=== PATIENT | female | born 2000 | race Caucasian/White ===

== ENCOUNTER 2023-09-14 16:30 | Outpatient (AMB) | payer BC, SELFPAY ==
--- NOTE | 2023-09-14 16:30 | A.OFFPSYCH_ITS ---
Intake Intake Visit Reasons: Depression, DEIDRA (generalized anxiety disorder), panic attacks Allergies olanzapine Allergy (Intermediate, Verified 09/16/23 11:08) Rash lorazepam Adverse Reaction (Mild, Verified 09/16/23 11:08) Agitated Medication List - Last Reconciled 09/16/23 by Nicole Jhaveri APRN amitriptyline 50 mg (2 x 25 mg) PO BEDTIME bupropion HCl XL (Wellbutrin XL) 150 mg PO QAM fluoxetine (Prozac) 10 mg PO DAILY folic acid 1 mg PO DAILY lamotrigine (Lamictal) 150 mg (1.5 x 100 mg) PO BID HPI- Psychiatric Chief Complaint: Depression, DEIDRA (generalized anxiety disorder), panic attacks HPI Narrative: Pt is traveling for graduate school and spent a semester in [place] and then in [facility]. i last saw pt in Apr 2023 in my pp. She has been doing well. some increased stress in [facility] when her roomate was having parties late at night frequently but she was able to cope well despite high stress. She will be in the [facility] for a few daty and then drive back to [place] to spend time with family before going to [facility] [employer] [employer] [facility] and [employer] for her next 2 semesters. she is doing well academically; she is taking meds consistently and no side effects; she had stopped her BCP and noticed the pMDD has returned; she has 7 days of irritability prior to the start of her period; she has 2 days when she feels really good and more scial; no high risk behaviors; no impulsivity; once her menses starts she feel her mood is more normal; we discussed options fro PMDD. she has been on prozac in past with good effect so she will take prozac 10mg to start if that is ineffective she can increase lamictal, add B50 complex vitamin as weel and if none of these work she will reach out to [facility] again. No SI no HI no paranoia. anxiety but manageable depression low. Past Psychiatric History: In 2018 when pt was a freshman at [employer] [place] [facility] [place], Pt and parents met with this race and sports book writer- they report that 2 years dx with depression, DEIDRA, and past June 2018 dx with Schizoaffective Depressive type because she told her psychiatrist that she had paranoid ideas with ritualized behaviors since age 11. She would feel someone was watching her while getting undressed or changing her clothes and would inspector rag sorting a certain place in her room; she took an antipsychotic for a while but didn't like it so stopped and the paranoid ideas went away as well; She is on Prozac and Wellbutrin and feels she is doing very well. Pt did not have the relational style nor social withdrawal that is characteristic of schizoaffective disorder; she had long standing anxiety with OCD traits and depression with paranoia. Pt has friends and makes social connection. She has been treated for depression and DEIDRA with panic and has done well; No IPLOC. no PHP IOP. no self harm. graduated [employer] and is now in gradua te school studying [employer]. Panic attacks: Yes Agoraphobia: No Separation anxiety disorder: No Social phobia: No Specific phobia: No Hypochondriasis: No Body dysmorphic disorder: No Obsessive compulsive disorder: No Generalized anxiety: Yes Post traumatic stress disorder: No Acute stress disorder: No Previous psychiatric history: Yes Previous inpatient psychiatric hospitalization: No Other previous psychiatric treatment programs: none History of suicidal ideation: No History of suicide attempt: No Medically hospitalized: No History of self injurious behavior: No History of violence: No Current/previous psychiatrist: [email or web address] Current/previous therapist: none Subjective Subjective Subjective Medication Compliance: Yes Side effects from medications: No Review of Systems Medical Review of Systems: unchanged Mental Status Exam Mental Status Exam Patient Appearance: Well Grooomed and Appropriate Patient Orientation: Person, Place, Time and Situation Level of Consciousness: Awake and Alert Patient Behavior: Appropriate Mood Description: Happy and Anxious Affect Description: Happy and Anxious Patient Cognition Impaired: No Ability to Follow Directions: Excellent Speech Pattern: Clear and Appropriate Memory Description: Intact Hallucinations: None Delusions: Not Present Thought Process: Intact and Goal Oriented Thought Content: positive for Intact and positive for Goal Oriented Judgement: Good Assessment and Plan Assessment & Plan (1) Generalized anxiety disorder: Code(s): F41.1 - Generalized anxiety disorder (2) Major depressive disorder, recurrent, mild: Status: Acute Code(s): F33.0 - Major depressive disorder, recurrent, mild Plan continue lamictal, amitriptyline, wellbutrin, folic acid and clonazepam; trial of prozac 10 mg daily x 10 days before period Medications: New amitriptyline 50 mg (2 x 25 mg) PO BEDTIME 180 tabs 0RF bupropion HCl XL (Wellbutrin XL) 150 mg PO QAM 90 tabs 1RF lamotrigine (Lamictal) 150 mg (1.5 x 100 mg) PO BID 270 tabs 1RF folic acid 1 mg PO DAILY 90 tabs 1RF fluoxetine (Prozac) 10 mg PO DAILY 90 caps 0RF Counseling and coordination of Care Pt. Self Management counseling: Exercise, Light exposure, Maintenance-social rhythm, Mod caffeine/ETOH intake, Sleep hygiene, Behavior activation and Problem solving Medication management counseling: Effectiveness, Side effects, Dosing range, Duration, Drug interaction and Adherence Diagnosis and Prognosis Counseling: Accuracy of diagnosis, Prognosis over time, Impact of diagnosis on life functions, Impact of family relationship, Problematic behaviors secondary to diagnosis and Adequacy of current interventions Details: I spent [45] minutes reviewing the record, seeing the patient and documenting in the medical record. Counseling provided to the patient/caregiver as outlined below. Addressed patient/caregiver concerns regarding current medication regime including effective adherence. Addressed patient/caregiver concerns regarding diagnosis and prognosis including accuracy of diagnosis, prognosis over time, impact of diagnosis. Addressed patient/caregiver concerns regarding impact of recent stressors. [facility] Social History: in grad school for [employer]; grew up with mom and dad in [place]; ppt is the youngest 4 ; all her sibs are 1/2 sibs and much older. Pt graduated from [employer] [facility] [place] [facility] [place] in 2022 Substance History: none Trauma History: none known Coding Level of Care Code Est Pt Level 4 (72355) Tele Therapy 30m w/E&M (57162) Diagnoses Generalized anxiety disorder F41.1 Major depressive disorder, recurrent, mild F33.0
== END 2023-09-14 17:48 | disposition home or self-care (01) ==
LOC: HO.HOP 16:30
PROVIDERS: Visit Provider Clinical Nurse Specialist Psychiatric/Mental Health
DX: F41.1 Generalized anxiety disorder (principal); F33.0 Major depressive disorder, recurrent, mild
CPT/HCPCS: 90833; 99214

== ENCOUNTER → 2023-09-14 16:30 | Outpatient (BNVA) | payer BC, SELFPAY | PROVIDERS: Visit Provider Clinical Nurse Specialist Psychiatric/Mental Health ==

== ENCOUNTER 2024-05-22 10:22 | Outpatient (AMB) | payer BC, SELFPAY ==
--- NOTE | 2024-05-22 11:06 | MHC.OFFVISPS ---
Intake Intake Visit Reasons: depression Project Archivist Required: No Allergies olanzapine Allergy (Intermediate, Verified 09/16/23 11:08) Rash lorazepam Adverse Reaction (Mild, Verified 09/16/23 11:08) Agitated Medication List - Last Reconciled 05/22/24 by Nicole Jhaveri APRN amitriptyline 50 mg (2 x 25 mg) PO BEDTIME bupropion HCl XL (Wellbutrin XL) 150 mg PO QAM cholecalciferol (vitamin D3) (Vitamin D3) 25 mcg PO DAILY drospirenone-ethinyl estradiol 3-0.02 mg (Vestura (28)) tabs PO DAILY folic acid 1 mg PO DAILY lamotrigine (Lamictal) 150 mg (1.5 x 100 mg) PO BID tretinoin 0.05% appl topical HPI- Psychiatric Chief Complaint: depression HPI Narrative: pt reports worsening mood over past 6 months; In summer pt had a 2 week period of high irritability and poor sleep that remitted on its own. In [facility] pt had depression and then a period of not sleeping which increased in intensity from 4 hour at night only, then 3 hours a night for weeks ntil her sleep deteriotated to 15 min one night. She reports slef care was difficult at that time and she stopped taking her meds for a period due to outof routine, not eating well and feeling irritable, elated, and hypersexual. She denies high risk behaviors or impulsive behaviors. She did have increased productivity and fantasized and researched moving to [facility]. She went home in [facility] and talked with her mother; she restarted her meds a month ago and slowly tapered up on the lamictal and now is back on her medications fully; Her mood is stable and she is sleeping 8 hours. No psychosis nd no SI or HI. We discussed dx of Bipolar II disorder and patient has acceptance and insight. Pts maternal grandfatherand maternal uncle both dx qwith Bipolar do. Discussed self care and prevention of cycling. Past Psychiatric History: In 2018 when pt was a freshman at [employer] [facility] [place] Pt and parents met with this curriculum writer- they report that 2 years dx with depression, DEIDRA, and past June 2018 dx with Schizoaffective Depressive type because she told her psychiatrist that she had paranoid ideas with ritualized behaviors since age 11. She would feel someone was watching her while getting undressed or changing her clothes and would building repair maintenance supervisor a certain place in her room; she took an antipsychotic for a while but didn't like it so stopped and the paranoid ideas went away as well; She is on Prozac and Wellbutrin and feels she is doing very well. Pt did not have the relational style nor social withdrawal that is characteristic of schizoaffective disorder; she had long standing anxiety with OCD traits and depression with paranoia. Pt has friends and makes social connection. She has been treated for depression and DEIDRA with panic and has done well; No IPLOC. no PHP IOP. no self harm. graduated [employer] and is now in graduate school studying [email or web address]. Subjective Subjective Subjective Medication Compliance: Intermittent Side effects from medications: No Review of Systems Medical Review of Systems: unchanged Mental Status Exam Mental Status Exam Patient Appearance: Well Grooomed and Appropriate Patient Orientation: Person, Place, Time and Situation Level of Consciousness: Awake and Appropriate Patient Behavior: Appropriate, Cooperative and Good Eye Contact Mood Description: Anxious Affect Description: Anxious Patient Cognition Impaired: No Ability to Follow Directions: Good Speech Pattern: Clear and Appropriate Memory Description: Intact Hallucinations: None Delusions: Not Present Thought Process: Intact Thought Content: positive for Intact Judgement: Good Assessment and Plan Assessment & Plan (1) Bipolar II disorder with most proximal episode hypomanic with seasonal pattern: Status: Acute Code(s): F31.81 - Bipolar II disorder Plan continue medications as below discussed using risperdal PRN for racing thought, sleeplessness, irritability hypomania to prevent cycling Medications: New risperidone (Risperdal) 0.5 mg PO BID 180 tabs 1RF Refilled lamotrigine (Lamictal) 150 mg (1.5 x 100 mg) PO BID 270 tabs 1RF amitriptyline 50 mg (2 x 25 mg) PO BEDTIME 180 tabs 1RF folic acid 1 mg PO DAILY 90 tabs 1RF bupropion HCl XL (Wellbutrin XL) 150 mg PO QAM 90 tabs 1RF Counseling and coordination of Care Pt. Self Management counseling: Maintenance-social rhythm, Mindfulness, Mod caffeine/ETOH intake, Nutrition education and improvement, Sleep hygiene and General coping skills Medication management counseling: Effectiveness, Side effects, Dosing range, Duration, Drug interaction and Adherence Diagnosis and Prognosis Counseling: Accuracy of diagnosis, Prognosis over time, Impact of diagnosis on life functions, Impact of family relationship, Problematic behaviors secondary to diagnosis and Adequacy of current interventions Details-Diagnosis/Prognosis counseling: discussed new diagnosis, prognosis, course, self care and prevention strategies Details: I spent 50 minutes reviewing the record, seeing the patient and documenting in the medical record. Counseling provided to the patient/caregiver as outlined below. Addressed patient/caregiver concerns regarding current medication regime including effective adherence. Addressed patient/caregiver concerns regarding diagnosis and prognosis including accuracy of diagnosis, prognosis over time, impact of diagnosis. Addressed patient/caregiver concerns regarding impact of recent stressors. [facility] Medical History (Updated 05/22/24 @ 17:11 by Nicole Jhaveri APRN) Major depressive disorder, recurrent, mild Social History: in grad school for [email or web address]; grew up with mom and dad in [place]; ppt is the youngest 4 ; all her sibs are 1/2 sibs and much older. Pt graduated from [employer] [place] [place] in 2022 Substance History: none Trauma History: none known Coding Level of Care Code Est Pt Level 5 (13525) Diagnoses Bipolar II disorder with most proximal episode hypomanic with seasonal pattern F31.81 Time Spent (min) 45 Comment new dx
--- OUTSIDE RECORDS SUMMARY | 2024-05-22 11:08 | XMS_ITS | Encounter Summary ---
Author Organization [facility] Address [address] [place] [address] Care Team Providers Care Manager Document Control Name Role Phone Moraima eZng DO Primary Care Provider [phone] Moraima Zeng DO Unavailable [phone] Moraima Zeng DO Unavailable [phone] Shashi Shannon M DO Unavailable [phone] KarriMoraima arnold DO Unavailable [phone] Kalli Marie DO Unavailable KarriMoraima arnold DO Unavailable [phone] Cammy Jiang MD Unavailable [phone] Moraima Zeng DO Unavailable [phone] Moraima Zeng DO Unavailable [phone] Moraima Zeng DO Unavailable [phone] Moraima Zeng DO Unavailable [phone] Nicole Caballero APN Unavailable [phone] Nicole Caballero APN Unavailable [phone] Moraima Zeng DO Unavailable [phone] Moraima Zeng DO Unavailable [phone] Moraima Zeng DO Unavailable [phone] Reason for Referral * Specialty Diagnoses / Procedures Referred By Nadya t Referred To Contact [facility] [address] [facility] [address] [place] [address] Phone: tel: Referral ID Status Reason Start Date Expiration Date Visits Re quested Visits Authorized Encounter Details Date Type Department Care Team (Late st Contact Info) Description 10/25/2018 Outpatient Orders Only [facility] Primary Care - [place] [facility] - [id number] [place] [address] ProviderJessie MD [address] [place] [address] Social History Tobacco Use Types Packs/Day Years Used Date Smoking Tobacco: Never Smokeless Tobacco: Never Alcohol Use Standard Drinks/Week Comments Never 0 (1 standard drink = 0.6 oz pur e alcohol) AUDIT-C Answer Date Recorded Frequency of Alcohol Consumption Never 10/11/2018 Average Number of Drinks Not on file 019 Frequency of Binge Drinking Not on file 09/18 Comments Unknown Sex and Gender Information Value Date Recorded Sex Assigned at Not on file Legal Sex Female 18:55 EDT Gender Identity Female 10/11/2018 9:23 EDT Sexual Orientation Unknown/Unavailable 3 8:43 EDT documented as of this encounter Plan of Treatment Not on file documented as of this encounter Goals Goal Patient Goal Type Associated Problems Recent Progress Patient-Stated? Author Barriers to Care Amb General No Moraima Zeng DO Note: Assessed and addressed any barriers to effectively following prescribed medical plan. Patient Understanding Amb General Yes Moraima Zeng DO Note: Patient understanding: Voiced understanding Shared Decision Making Amb General No Moraima Zeng DO Note: Shared decision making based on patient preferences discussed with:Patient Individual patient goals/preferences Amb General No Moraima Zeng DO Diet/Nutrition Obesity No Moraima Zeng DO Note: Discussed weight loss goal of 5-10% of current weight over the next 6 months Construct a healthy diet plan ie. Low-calorie high-nutrition foods, lean proteins, and low-fat alternatives. Activity Obesity No Moraima Zeng DO Note: Reviewed diet and activity plan with patient. Discussed with patient incorporate at moderate-intensity aerobic activity and two or more days of resistance training per week. Reduce sedentary behaviors such as TV watching computer use and talking on the phone. documented as of this encounter Procedures Procedure Name Priority Date/Time Associated Diagnosis Comments AMB REFERRAL TO GASTROENTEROLOGY Routine 10/24/2018 documented in this encounter Results * AMB REFERRAL TO GASTROENTEROLOGY (10/24/2018) us Historical Provider OUTPATIENT REFERRAL ORDER DANIELLE Edited Result - Final documented in this encounter Visit Diagnoses Not on filedocumented in this encounter Care Teams Manager Document Control Relationship Specialty Start Date End Date Moraima Zeng DO [address] [place] [phone] PCP - General Internal Medicine - General 10/11/18 Moraima Zeng DO [address] [place] [phone] ACO/LANEY Attributed Provider 04/19/19 10/17/19 Moraima Zeng DO [address] [place] [address] ACO/LANEY Attributed Provider 10/18/19 11/17/19 Shannon Danielle DO [facility] [place], [place] [id number] Instrument Repairer Steam Plant Obstetrics & Gynecology 11/22/19 Moraima Zeng, DO [address] [place] [address]2374 LOSS CONTROL TECHNICIAN+ Provider 12/19/19 01/17/20 Kalli Marie DO [address] [place] [address] [phone] LOSS CONTROL TECHNICIAN+ Provider 01/18/20 04/18/21 Moraima Zeng, DO [address] [place] [address] [phone] LOSS CONTROL TECHNICIAN+ Provider 04/19/21 04/19/21 Cammy Jiang MD [address] [place] [address] [phone] Dermatology 09/28/22 Moraima Zeng, DO [address] [place] [address] [facility] Panel 12/18/22 10/17/23 Moraima Zeng, DO [address] [place] [address] 31495 ACO/LANEY Attributed Provider 02/17/23 04/18/23 Moraima Zeng DO [address] [place] [address] 44703 ACO/LANEY Attributed Provider 05/20/23 06/17/23 Moraima Zeng, DO [address] [place] [address] 50207 ACO/LANEY Attributed Provider 07/19/23 09/17/23 Nicole Caballero APN [address] [place] [address] 29186 ACO/LANEY Attributed Provider 09/18/23 11/17/23 Nicole Caballero APN [address] [place] [address] [facility] Panel 09/18/23 11/17/23 Moraima Zeng DO [address] [place] [address] [facility] Panel 10/18/23 Moraima Zeng DO [address] [place] [address] 0000[address] ACO/LANEY Attributed Provider 10/18/23 02/17/24 Moraima Zeng DO [address] [place] [address] 06803 ACO/LANEY Attributed Provider 02/18/24 documented as of this encounter
--- OUTSIDE RECORDS SUMMARY | 2024-05-22 11:09 | XMS_ITS | Encounter Summary ---
Author Organization [facility] Address [address] [place] [address] Care Team Providers Care Customer Service Advisor Name Role Phone Moraima Zeng DO Primary Care Provider [phone] Shannon Danielle DO Unavailable Cammy Jiang MD Unavailable [phone] Moraima Zeng DO Unavailable Moraima Zeng DO Unavailable Moraima Zeng DO Unavailable Moraima Zeng DO Unavailable Nicole CaballeroN Unavailable Nicole Caballero RADIO OPERATOR GROUND Unavailable [phone] Moraima Zeng DO Unavailable Moraima Zeng DO Unavailable Moraima Zeng DO Unavailable Encounter Details Date Type Department Care Team (Late st Contact Info) Description 12/10/2022 Telephone [facility] - Primary Care - [place] [address] [place] [address] Moraima Zeng DO [facility] [address] Social History Tobacco Use Types Packs/Day Years Used Date Smoking Tobacco: Never Smokeless Tobacco: Never Alcohol Use Standard Drinks/Week Comments Never 0 (1 standard drink = 0.6 oz pur e alcohol) AUDIT-C Answer Date Recorded Frequency of Alcohol Consumption Never 11/22/2019 Average Number of Drinks Not on file 020 Frequency of Binge Drinking Not on file 08/2019 PHQ-2 Answer Date Recorded Patient Health Questionnaire-9 Score 0 12/10/2022 PHQ-9 Answer Date Recorded Patient Health Questionnaire-9 Score 0 12/10/2022 Comments No Sex and Gender Information Value Date Recorded Sex Assigned at Not on file Legal Sex Female 18:55 EDT Gender Identity Female 10/11/2018 9:23 EDT Sexual Orientation Unknown/Unavailable 8:43 EDT COVID-19 Exposure Response Date Recorded In the last 10 days, have yo u been in contact with someone who was confirmed or suspected to have Coronavirus/COVID-19? No / Unsure 12/10/2022 13:45 EDT documented as of this encounter Miscellaneous Notes * Telephone Encounter - Clarissa Garnett CMA - 12/10/2022 1014 EDT Made an appt with Zaira to discuss bw. * Telephone Encounter - Michael Gustafson - 12/10/2022 0859 EDT Pt called, Got recent bw results from [facility]. Is due to go on vacation in next few days and was wondering if we could advise if she requires any boosters etc. Based on bw results. Advised her dr is away at the moment but would send a message to clinical team to check if anyone could advise. Can we call pt back please? JTP documented in this encounter Plan of Treatment Not on [...] the phone. documented as of this encounter Visit Diagnoses Not on filedocumented in this encounter Care Teams Customer Service Advisor Relationship Specialty Start Date End Date Moraima Zeng DO [address] [place] [address] PCP - General Internal Medicine - General 10/11/18 Shannon Danielle DO [facility] [address] [place] [address] Rn Hyperbaric Obstetrics & Gynecology 11/22/19 Cammy iJang MD [address] [place] [address] Dermatology 09/28/22 Moraima Zeng DO [address] [place] [address] [facility] Panel 12/18/22 10/17/23 Moraima Zeng, DO [address] [place] [address] ACO/LANEY Attributed Provider 02/17/23 04/18/23 Moraima Zeng, DO [address] [place] [address] ACO/LANEY Attributed Provider 05/20/23 06/17/23 Moraima Zeng, DO [address] [place] [address] ACO/LANEY Attributed Provider 07/19/23 09/17/23 Nicole Caballero APN [address] [place] [address] ACO/LANEY Attributed Provider 09/18/23 11/17/23 Nicole Caballero APN [address] [place] [address] [facility] Panel 09/18/23 11/17/23 Moraima Zeng, DO [address] [place] [address] [facility] Panel 10/18/23 Moraima Zeng, DO [address] [place] [address] ACO/LANEY Attributed Provider 10/18/23 02/17/24 Moraima Zeng DO [facility] [place] [address] ACO/LANEY Attributed Provider 02/18/24 documented as of this encounter
--- OUTSIDE RECORDS SUMMARY | 2024-05-22 11:11 | XMS_ITS | Clinical Summary ---
Author Organization [facility] Address [address] [place] [address] Care Team Providers Care Personal Loan Specialist Name Role Phone Moraima Zeng DO Primary Care Provider [phone] Shannon Danielle DO Unavailable [phone] Cammy Vega MD Unavailable [phone] Moraima Zeng DO Unavailable [phone] Moraima Zeng DO Unavailable [phone] Allergies Active Allergy Reactions Criticality Noted Date Comments Olanzapine 05/06/2020 Rash Brexpiprazole Drowsiness Low 04/09/2021 Extreme fatigue Topiramate 10/11/2018 Heavy fog Medications Magnesium 125 MG CAPS by mouth Active Multiple Vitamins-Calcium (ONE-A-DAY WOMENS PO) by mouth Active amitriptyline (ELAVIL) 25 MG tablet Take 25 mg nightly by mouth 03/22/20 21 Active Cholecalciferol (VITAMIN D) 25 MCG (1000 UT) tablet 12/26/19 21 Active lamoTRIgine (LAMICTAL) 100 MG tablet Take 100 mg every morning by mouth 02/24/20 21 Active clonazePAM (KLONOPIN) 1 MG tablet as needed Active lamoTRIgine (LAMICTAL ODT) 50 MG disintegrating tablet Take 50 mg nightly by mouth Active buPROPion (WELLBUTRIN XL) 150 MG 24 hr tablet Take 150 mg every morning by mouth 08/05/19 Active folic acid (FOLVITE) 1 MG tablet Take 1 Tablet daily by mouth 09/04/19 Active tretinoin (RETIN-A) 0.05 % cream 12/09/19 Active drospirenone-ethin yl estradiol (MELLISSA) 3-0.02 MG per tabletIndications: Contraceptive Management Take 1 Tablet daily by mouth Indications: Contraceptive Management 60 Tablet 04/10/20 24 Active Active Problems Problem Noted Date Diagnosed Date Encounter for gynecological examination without abnormal finding 04/10/2024 Assessment & Plan (04/10/2024 13:36 EST): Normal APPLICATOR SPRAYER exam PAP test Not indicated at this time. Accepts STI testing. Labs done w/ PCP. Educated about SBEs. Follow up 1 year. Encounter for initial prescription of contracept rory pills 04/10/2024 Assessment & Plan (04/10/2024 13:39 EST): Pt would like to start control pills for acne. Pt taking lamictal for bipolar. Reviewed cat 3 when lamictal used as monotherapy as cocs may decrease concentration. Pt reports she has been on ocps prior and would like to restart. Advised to consult with psychiatrist. Reports she has appt in 1 month. OCPs ordered. Aches reviewed. Advised that if any change in mood/SI/ thoughts of self harm, consult with psych and discontinue ocps. Pt accepts this plan. Hepatitis B core antibody positive 12/10/2022 Assessment & Plan (12/10/2022 15:23 EDT): Labs showed positive core antibody but surface antigen and surface antibody immune. Script given for viral load labs. If viral load present will refer to Hepatology, Dr. Lopez or Brisa Annual visit for general janice lt medical examination with abnormal findings 12/02/2022 Overview (12/02/2022): Annual Wellness Exam: 12/02/2022 Screening labs: Recommend yearly screening labs ordered 12/02/2022 Screening Mammo: due by age 40 yo Screening Pap: UTD w/ screening pap 12/19/2021 - normal repeat yearly. Screening DEXA: due by age 65 yo Screening Colonoscopy: due by age 45 yo Screening SKIN Cancer: recommend yearly screening - UTD dr vega Eye Exam: UTD w/ yearly - [facility] Dental Exam: UTD w/ cleaning Flu Vaccine: recommend yearly recommend fall 2022 Pneumonia Vaccine: recommend by age 65 yo Shingles Vaccine: recommend by age 50 yo Tdap Vaccine: good for 10 years. UTD tdap 06/21/2020 Varicella Vaccine: 04/21/2002 and 12/06/2012 Covid vaccine: pfizer 05/08/2020 and 05/29/2020 and 04/03/2021 and bivalent pfizer booster 04/13/2022. Hep B vaccine: 12/20/2001, 01/25/2001, 2000 Assessment & Plan (12/02/2022 18:02 EDT): Annual Wellness Exam: 12/02/2022 Screening labs: Recommend yearly screening labs ordered 12/02/2022 Screening Mammo: due by age 40 yo Screening Pap: UTD w/ screening pap 12/19/2021 - normal repeat yearly. Screening DEXA: due by age 65 yo Screening Colonoscopy: due by age 45 yo Screening SKIN Cancer: recommend yearly screening - UTD dr vega Eye Exam: UTD w/ [facility] - [facility] Dental Exam: UTD w/ cleaning Flu Vaccine: recommend yearly recommend fall 2022 Pneumonia Vaccine: recommend by age 65 yo Shingles Vaccine: recommend by age 50 yo Tdap Vaccine: good for 10 years. UTD tdap 06/21/2020 Varicella Vaccine: 04/21/2002 and 12/06/2012 Covid vaccine: pfizer 05/08/2020 and 05/29/2020 and 04/03/2021 and bivalent pfizer booster 04/13/2022. Hep B vaccine: 12/20/2001, 01/25/2001, 2000 Acute UTI 12/02/2022 Assessment & Plan (12/02/2022 13:49 EDT): Symptoms x 3 days UA/URx and urine dipstick in office Microscopic hematuria 12/02/2022 Assessment & Plan (12/02/2022 14:07 EDT): Recommend repeat UA/URcx Hydrate Renal /bladder US ordered 12/02/2022 Recommend decrease or stop the spironolactone - coordinate w/ derm. Risks for renal stones w/ the calcium oxylate crystals. Need for hepatitis B screening test 12/02/2022 Screen for STD (sexually transmitted disease) Need for hepatitis C screening test 12/02/2022 Intermittent palpitations 12/02/2022 Assessment & Plan (12/02/2022 18:03 EDT): POCT EKG Result Date: 12/02/2022 Impression: EKG shows NSR at [address] no T wave changes, otherwise stable baseline EKG. Benign joint hypermobility syndrome 09/12/2021 Assessment & Plan (09/12/2021 13:20 EDT): As above Sinus tachycardia 04/09/2021 Assessment & Plan (12/02/2022 18:03 EDT): Sinus tachycardia w/ anxiety ?? Worse on the higher dose wellbutrin, improving on the lower dose ?? EKG in office stable 04/09/2021 ?? POCT EKG ?? Result Date: 04/09/2021 Impression: EKG shows NSR at 87 BPM no sT no T wave changes, + mild artifact, otherwise stable baseline EKG POCT EKG Result Date: 12/02/2022 Impression: EKG shows NSR at [address] no T wave changes, otherwise stable baseline EKG. Assessment & Plan (04/09/2021 8:39 EST): Sinus tachycardia w/ anxiety Worse on the higher dose wellbutrin, improving on the lower dose EKG in office stable 04/09/2021 POCT EKG Result Date: 04/09/2021 Impression: EKG shows NSR at 87 BPM no sT no T wave changes, + mild artifact, otherwise stable baseline EKG Recurrent major depressive d isorder, in full remission ([facility]) 04/09/2021 Assessment & Plan (12/02/2022 14:10 EDT): Major depression recurrent Hx moderate, up to date with therapist and psychiatrist - now in remission on medications ?? Off the prozac Off the latuda Off the rexulti, was having paranoia since middle school. Not having paranoia now. Was on antipsychotics for months and had extreme fatigue and stomach pains, weaned off and doing well. Hydroxyzine 25 mg prn - stopped ?? Medications: elvail 25 mg nightly Klonopin 0.5 mg - 1 mg daily as needed wellbutrin xl 150 mg daily lamictal 100 mg in the AM and 50 mg nightly ?? All psych medications through psychiatrist Jeet Jones in [facility] PHQ-9 = 0 on 12/02/2022, stable, depression in remission and anxiety stable Assessment & Plan (09/28/2022 14:25 EDT): Hx of depression UTD w/ therapist and psychiatrist Doing well on medications Depression is in remission and stable, discussed during visit on 09/28/2022 Assessment & Plan (04/09/2021 8:53 EST): Major depression recurrent Hx moderate, up to date with therapist and psychiatrist - now in remission on medications Off the prozac Off the latuda Off the rexulti, was having paranoia since middle school. Not having paranoia now. Was on antipsychotics for months and had extreme fatigue and stomach pains, weaned off and doing well. Medications: elvail 25 mg nightly Klonopin 0.5 mg - 1 mg daily as needed wellbutrin xl 150 mg daily Hydroxyzine 25 mg prn lamictal 100 mg in the AM and 50 mg nightly All psych medications through psychiatrangela Jones in [facility] Polyarthralgia 05/06/2020 Assessment & Plan (12/02/2022 13:53 EDT): Secondary to joints hypermobility syndrome. No signs of inflammatory polyarthritis. Labs November 2019: negative for RF, CCP, CLAUDIA, King, PRECISION FARMING COORDINATOR, dsDNA, SSA, Scl 70, Lyme western blot. Normal CPK, TSH.??Negative celiac panel. Repeatedly normal ESR and CRP. S/p work up w/ rheumatology at [facility]. Assessment & Plan (09/12/2021 13:19 EDT): Secondary to joints hypermobility syndrome. No signs of inflammatory polyarthritis. Labs November 2019: negative for RF, CCP, CLAUDIA, King, PRECISION FARMING COORDINATOR, dsDNA, SSA, Scl 70, Lyme western blot. Normal CPK, TSH. Negative celiac panel. Repeatedly normal ESR and CRP. Recommend: - Tylenol 500 mg BID PRN - avoid activities that includes joints hyperextension (like modern dance) - do muscle strengthening exercises ?? Assessment & Plan (04/09/2021 8:40 EST): Full autoimmune panel 12/05/2019 negative Joint pain improved w/ the anxiety medications Stable as of 04/09/2021 Assessment & Plan (07/01/2020 15:26 EDT): Intermittent pain in joints of hands, feet, ankles, dull in elbows and knees. Since November 2019. No swollen joints. Normal ROM joints of arms and legs. Widespread articular and non articular body tenderness. No effect of NSAIDs. Laboratory work up for inflammatory arthritis in November 2019 was negative for RF, CCP, CLAUDIA, King, PRECISION FARMING COORDINATOR, dsDNA, SSA, Scl 70, Lyme western blot. Normal CPK, TSH. Negative celiac panel. Repeatedly normal ESR and CRP. Likely non specific polyarthralgia. Will continue to reevaluate ?? Recommend: - Tylenol 500 mg BID PRN - daily exercises - continue acupuncture - monitor ESR and CRP Assessment & Plan (05/06/2020 15:53 EST): Intermittent sharp pain in joints of hands, feet, ankles, dull in elbows and knees. Since November 2019. Today's joints exam is normal, except mild tenderness in right 2nd and 3rd PIPs, left 2nd PIP, and MTPs squeeze. Laboratory work up for inflammatory arthritis in November 2019 was negative for RF, CCP, CLAUDIA, King, PRECISION FARMING COORDINATOR, dsDNA, SSA, Scl 70, Lyme western blot. Normal ESR, CRP, CPK, TSH. Likely non specific polyarthralgia. Will continue to reevaluate Recommend: - Meloxicam 15 mg once a day with meal for 2 weeks, then PRN - labs: ESR and CRP, celiac panel, recheck Lyme WB Depression 10/11/2018 Assessment & Plan (12/02/2022 14:10 EDT): Major depression recurrent Hx moderate, up to date with therapist and psychiatrist - now in remission on medications ?? Off the prozac Off the latuda Off the rexulti, was having paranoia since middle school. Not having paranoia now. Was on antipsychotics for months and had extreme fatigue and stomach pains, weaned off and doing well. Hydroxyzine 25 mg prn - stopped ?? Medications: elvail 25 mg nightly Klonopin 0.5 mg - 1 mg daily as needed wellbutrin xl 150 mg daily lamictal 100 mg in the AM and 50 mg nightly ?? All psych medications through psychiatrist Jeet Jones in [facility] PHQ-9 = 0 on 12/02/2022, stable, depression in remission and anxiety stable Assessment & Plan (04/09/2021 8:54 EST): Major depression recurrent Hx moderate, up to date with therapist and psychiatrist - now in remission on medications Off the prozac Off the latuda Off the rexulti, was having paranoia since middle school. Not having paranoia now. Was on antipsychotics for months and had extreme fatigue and stomach pains, weaned off and doing well. Medications: elvail 25 mg nightly Klonopin 0.5 mg - 1 mg daily as needed wellbutrin xl 150 mg daily Hydroxyzine 25 mg prn lamictal 100 mg in the AM and 50 mg nightly All psych medications through psychiatrangela Jones in [facility] Assessment & Plan (06/07/2020 16:30 EST): Pt on Wellbutrin 300mg 24hr po daily Prozac 20mg po daily Amitryptiline 10mg daily Klonopin .5mg po BID prn Lamictal 75mg po daily (25mg in am and 50mg in pm) Close follow up with therapy and psych Recommend exercise, meditation, acupuncture contact office or on-call physician promptly should condition worsen or any new symptoms appear and provided on-call telephone numbers. IF THE PATIENT HAS ANY SUICIDAL OR HOMICIDAL IDEATION, CALL 911 OR GO TO THE ER IMMEDIATELY. Assessment & Plan (12/21/2019 11:39 EDT): Pt on Wellbutrin 300mg 24hr tab Prozan 20mg po tab Amitryptiline 10mg tab [place] referral made for patient to find local providers PHQ 9: 3 Assessment & Plan (11/22/2019 14:24 EDT): Major depression recurrent and moderate, up to date with therapist and psychiatrist Doing well on the prozac 60 mg daily and the wellbutrin xl 300 mg daily, Off the latuda Off the rexulti, was having paranoia since middle school. Not having paranoia now. Was on antipsychotics for months and had extreme fatigue and stomach pains, weaned off and doing well. elvail 10mg - 30 mg nightly Klonopin 0.5 mg prn All psych medications through psychiatrist Assessment & Plan (10/11/2018 9:39 EDT): Major depression recurrent and moderate, up to date with therapist and psychiatrist Doing well on the prozac 60 mg daily and the wellbutrin xl 300 mg daily, Off the latuda Off the rexulti, was having paranoia since middle school. Not having paranoia now. Was on antipsychotics for months and had extreme fatigue and stomach pains, weaned off and doing well. Anxiety 10/11/2018 Assessment & Plan (12/02/2022 14:10 EDT): Major depression recurrent Hx moderate, up to date with therapist and psychiatrist - now in remission on medications ?? Off the prozac Off the latuda Off the rexulti, was having paranoia since middle school. Not having paranoia now. Was on antipsychotics for months and had extreme fatigue and stomach pains, weaned off and doing well. Hydroxyzine 25 mg prn - stopped ?? Medications: elvail 25 mg nightly Klonopin 0.5 mg - 1 mg daily as needed wellbutrin xl 150 mg daily lamictal 100 mg in the AM and 50 mg nightly ?? All psych medications through psychiatrist - Nannette Jones in [facility] PHQ-9 = 0 on 12/02/2022, stable, depression in remission and anxiety stable Assessment & Plan (04/09/2021 8:54 EST): Major depression recurrent Hx moderate, up to date with therapist and psychiatrist - now in remission on medications Off the prozac Off the latuda Off the rexulti, was having paranoia since middle school. Not having paranoia now. Was on antipsychotics for months and had extreme fatigue and stomach pains, weaned off and doing well. Medications: elvail 25 mg nightly Klonopin 0.5 mg - 1 mg daily as needed wellbutrin xl 150 mg daily Hydroxyzine 25 mg prn lamictal 100 mg in the AM and 50 mg nightly All psych medications through psychiatrist - Nannette Jones in [facility] Assessment & Plan (11/22/2019 14:25 EDT): Hx of anxiety and depression w/ episode of psychosis in 2012, UTD with psychiatrist and therapist Doing well on medications No episodes of psychosis since 2012 Hx of ?schizoaffective however 2nd opinion felt was major depression w/ episode of psychosis and no further symptoms. Medications: Elavil 10mg tabs taking 1-3 tabs nightly wellbutrin xl 300 mg daily Klonopin 0.5 mg prn prozac 60 mg daily Discussed medical marijuana program w/ pt. Assessment & Plan (10/11/2018 9:41 EDT): Mixed anxiety and depression overall stable Migraines 10/11/2018 Assessment & Plan (12/02/2022 13:52 EDT): Hx of migraine with aura and other migraine type headaches w/o auro associated with menstrual cycle and barometric pressure S/p work up w/ neurology - dr rizzo, retired now Migraine frequency went from 3x per month now to 1x every 3- 6 months. Stable doing well on control -- stopped control for the past few months, stopped 08/2022 Assessment & Plan (04/09/2021 8:40 EST): Hx of migraine with aura and other migraine type headaches w/o auro associated with menstrual cycle and barometric pressure Up to date with neurology Migraine frequency went from 3x per month now to 1x every 3- 6 months. Stable doing well on control - unchanged as of 04/09/2021 Assessment & Plan (11/22/2019 14:21 EDT): Hx of migraine with aura and other migraine type headaches w/o auro associated with menstrual cycle and barometric pressure Up to date with neurology Migraine frequency went from 3x per month now to 1x every 3- 6 months. Stable doing well on control Assessment & Plan (10/11/2018 9:34 EDT): Hx of migraine with aura and other migraine type headaches w/o auro associated with menstrual cycle and barometric pressure Up to date with neurology Migraine frequency went from 3x per month now to 1x every 3 months. Hay fever 10/11/2018 Assessment & Plan (10/11/2018 9:37 EDT): Recommend claritin reditabs OTC as needed Resolved Problems Problem Noted Date Diagnosed Date Resolved Date Acute pharyngitis 09/28/2022 12/02/2022 Assessment & Plan (09/28/2022 14:23 EDT): Recommend augmentin 875/125 mg twice daily x 10 days Add probiotics OTC Salt water gargle flonase OTC prn Arthralgia of hand 12/21/2019 Assessment & Plan (12/21/2019 11:37 EDT): Pt to decrease sodium intake and increase water. Patient to continue exercise and take Ibuprofen for pain. Arthralgia of both feet 12/21/201903/20 Assessment & Plan (12/21/2019 11:38 EDT): Pt to decrease sodium intake and increase water. Patient to continue exercise and take Ibuprofen for pain. Patient to wear sneakers with good support. Exposure to COVID-19 virus 11/22/2019 0 09/28/2022 Assessment & Plan (11/22/2019 14:27 EDT): Recommend covid antibody testing Headache 10/11/2018 10/11/2018 Chronic abdominal pain 10/11/201804/09 Overview (11/22/2019): Follow up with gastro Gluten sensitive per symptoms Intermittent. Recommend gluten free, monitor diary Assessment & Plan (11/22/2019 14:20 EDT): Follow up with gastro Gluten sensitive per symptoms Intermittent. Recommend gluten free, monitor diary Assessment & Plan (10/11/2018 9:35 EDT): Follow up with gastro Gluten sensitive per symptoms Gluten intolerance 10/11/2018 Assessment & Plan (04/09/2021 8:41 EST): Hx of gluten intolerance in high school improved overall Monitor anemia panel Assessment & Plan (11/22/2019 14:26 EDT): Recommend strict gluten free lifestyle Assessment & Plan (10/11/2018 9:24 EDT): Gluten intolerance f/u with gastro Schizoaffective disorder ([facility]) 10/11/2018 11/22/2019 Overview (10/11/2018): Diagnosed with psychiatrist 3 months ago, weaned off the anti-psychotics. Stable on the prozac 60 mg daily and the wellbutrin xl 300 mg daily. Avoid alcohol on medication. Assessment & Plan (10/11/2018 9:41 EDT): Diagnosed with psychiatrist 3 months ago, weaned off the anti-psychotics. Stable on the prozac 60 mg daily and the wellbutrin xl 300 mg daily. Avoid alcohol on medication. Measles screening 10/11/2018 11/22/2019 Assessment & Plan (10/11/2018 9:43 EDT): Recommend MMR titers, recommend varicella titers etc Recommend hep B immune titers etc Immunity status testing 10/11/201811/17 Assessment & Plan (10/11/2018 9:43 EDT): Recommend MMR titers, recommend varicella titers etc Recommend hep B immune titers etc Encounters Date Type Department Care Team Description 04/10/2024 13:00 EST Office Visit [facility] Obstetrics and Gynecology [facility] [address] [place] [address] Janis Alonso, BHARATH Encounter for gynecological examination without abnormal finding (Primary Dx); Screening examination for venereal disease; Encounter for initial prescription of contraceptive pills from Last 3 Months Immunizations Name Administration Dates Next Due DTaP 12/25/2004, 2,03/29/2001,01/25,2000 HPV, Quadrivalent 12/06/2014,01/30/2013,12/16/19 12 Hepatitis B, Adjuvanted 12/20/2001,01/25/2001, HiB (PRP-T) 12/20/2001,01/25/2001,2000 IPV 12/25/2004, 2,01/25/2001,11/25 Influenza Quadrivalent, Jeffrey mbinant, Presevative Free 04/09/2021 Influenza, Quadrivalent, Mdc k, Preservative Free 04/13/2022 MMR 12/25/2004,10/04/2001 Meningococcal Group B, Recombinant 02/16/2018, Meningococcal MCV4O 12/07/2016 Meningococcal Polysaccharide MCV4P 12/01/2011 Pneumococcal Conjugate PCV 13 01/25/2001, 001 Tdap 06/21/2020,12/01/2011 Varicella 12/06/2012,04/21/2002 Family History Medical History Relation Name Comments High Blood Pressure Father Pancreatic cancer Maternal Grandfather Breast Cancer Mother Skin cancer Mother Stroke Paternal Grandfather Colon Cancer Neg Hx Ovarian Cancer Neg Hx Uterine Cancer Neg Hx Relation Name Status Comments Father Alive Maternal Grandfather Mother Alive Paternal Grandfather Social History Tobacco Use Types Packs/Day Years Used Date Smoking Tobacco: Never Smokeless Tobacco: Never Tobacco Cessation:Counseling Given: Not Answered Alcohol Use Standard Drinks/Week Comments Not Currently 0 (1 standard drink = 0.6 oz pur e alcohol) socially AUDIT-C Answer Date Recorded Frequency of Alcohol Consumption Never 11/22/2019 Average Number of Drinks Not on file 020 Frequency of Binge Drinking Not on file 0808/2019 PHQ-2 Answer Date Recorded Patient Health Questionnaire-9 Score 0 12/10/2022 PHQ-9 Answer Date Recorded Patient Health Questionnaire-9 Score 0 12/10/2022 Comments No Sex and Gender Information Value Date Recorded Sex Assigned at Not on file Legal Sex Female 18:55 EDT Gender Identity Female 10/11/2018 9:23 EDT Sexual Orientation Unknown/Unavailable 8:43 EDT Last Filed Vital Signs Vital Sign Reading Time Taken Comments Blood Pressure 114/70 04/10/2024 1305 EST Pulse 91 12/10/2022 1404 EDT Temperature 36.7 ??C (98.1 ??F) 12/10/2022 1404 EDT Respiratory Rate 20 12/10/2022 1404 EDT Oxygen Saturation 98% 12/10/2022 1404 EDT Inhaled Oxygen Concentration - - Weight 90.7 kg (200 lb) 04/10/2024 1305 EST Height 175.3 cm (5' 9 ) 04/10/2024 1305 EST Body Mass Index 29.53 04/10/2024 1305 EST Plan of Treatment Health Maintenance Due Date Last Done Comments Yearly Depression Screen 06/07/2021 021, 12/21/2019, 11/22/2019, Additional history exists PAPSMEAR 2021 Wellness Exam 12/03/2023 12/02/2022 COVID-19 (SARS-CoV-2) Vaccine ( season) 2023 04/13/2022, 04/03/2021, 05/29/2020, Additional history exists FLU VACCINE (#1) 12/19/2023 04/13/2022, 04/09/2021 TETANUS / TDAP SHOT 06/21/2030 06/21/2020, 12/01/2011, 12/25/2004, Additional history exists Pneumococcal Immunization 0-64 Aged Out 01/25/2001, 2000 No longer eligibl e based on patient's age to complete this topic Meningococcal Vaccine Completed 12/07/2016, 08/14/2 012 Meningococcal B Vaccine Completed 02/16/2018, 12/07 [facility] Chlamydia Screening Discontinued 12/05/19 23, 06/28/2021, 12/05/2019, Additional history exists Goals Goal Patient Goal Type Associated Problems [...] preferences discussed with:Patient Individual patient goals/preferences Amb No Moraima Zeng DO Diet/Nutrition Obesity No [...] computer use and talking on the phone. Procedures Procedure Name Priority Date/Time Associated Diagnosis Comments CHLAMYDIA /GC BY PCR Routine 12/04/2022 10:30 EDT Annual visit for general adult medical examination with abnormal findings Acute UTI Migraine with aura and without status migrainosus, not intractable Polyarthralgia Microscopic hematuria Recurrent major depressive disorder, in full remission Anxiety Need for hepatitis B screening test Need for hepatitis C screening test Screen for STD (sexually transmitted disease) from Last 3 Months or Most Recently Relevant to Health Maintenance Results * CHLAMYDIA /GC BY PCR (12/04/2022 10:30 EDT) Chlamydia trachomatis, VIKI Negative Negative [facility] N gonorrhoeae, VIKI Negative Negative [facility] Urine 12/04/2022 10:3 0 EDT 12/04/2022 Comment:UR Narrative [facility] - 12/09/2022 16:06 EDT Performed at: ??01 - [facility] [address] ??[id number] Engagement Mgr: Theresa Bustos MD, Phone: ??[phone] Moraima Zeng DO VIROLOGY - IMMUNOLOGY Final Result [facility] from Last 3 Months or Most Recently Relevant to Health Maintenance Insurance /[facility] Care Teams Personal Loan Specialist Relationship Specialty Start Date End Date Moraima Zeng DO [address] [place], [place] [id number] PCP - General Internal Medicine - General 10/11/18 Shannon Danielle DO [facility] [address] [place] [address] Machine Operator Picker Obstetrics & Gynecology 11/22/19 Cammy Vega MD [address] [place] [id number] Dermatology 09/28/22 Moraima Zeng DO [address] [place] [id number] [facility] Panel 10/18/23 Moraima Zeng DO [address] [place] [address] ACO/LANEY Attributed Provider 02/18/24
== END 2024-05-22 11:21 | disposition home or self-care (01) ==
LOC: HO.HOP 10:22
PROVIDERS: Visit Provider Clinical Nurse Specialist Psychiatric/Mental Health
DX: F31.81 Bipolar II disorder (principal)
CPT/HCPCS: 99215

== ENCOUNTER 2024-10-31 09:08 | Outpatient (AMB) | payer BC, SELFPAY ==
--- NOTE | 2024-10-31 09:18 | MHC.OFFVISPS ---
Intake Intake Visit Reasons: depression Automation Architect Required: No Allergies olanzapine Allergy (Intermediate, Verified 09/16/23 11:08) Rash lorazepam Adverse Reaction (Mild, Verified 09/16/23 11:08) Agitated Medication List - Last Reconciled 10/31/24 by Nicole Jhaveri APRN amitriptyline 50 mg (2 x 25 mg) PO BEDTIME bupropion HCl XL (Wellbutrin XL) 150 mg PO QAM cholecalciferol (vitamin D3) (Vitamin D3) 25 mcg PO DAILY clonazepam 1 mg PO DAILY PRN drospirenone-ethinyl estradiol 3-0.02 mg (Vestura (28)) tabs PO DAILY folic acid 1 mg PO DAILY lamotrigine (Lamictal) 200 mg (2 x 100 mg) PO BID risperidone (Risperdal) 0.5 mg PO BID tretinoin 0.05% appl topical HPI- Psychiatric Chief Complaint: depression HPI Narrative: Priscilla is here for follow-up of for mood symptoms, anxiety and insomnia. Patient reports she has been doing very well her mood has been stable no depression she is tolerating the increase in lamotrigine to 100 mg b.i.d.. No evidence of a rash she reports no side effects. 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 She has secured a job in her field that she feels good about she has good community she spends time with friends and socializes she feels well supported. She has not had to use the clonazepam nor the Risperdal frequently she has used Risperdal 1 time when she could not sleep and she has used the clonazepam a few times over the past few months. She has had no new medical issues her PHQ-9 equals 1 her G A D-7 is an 8 she reports her anxiety has been a little increased over the past month due to finishing up her dissertation. She has been able to cope with her anxiety quite well she denies any thoughts of harming herself she is staying with her parents until the end of November all moved back to [place] she has a plan to start with the primary care doctor and done elsie as soon as she returns in November however the wait to see a psychiatrist can be approximately a 5-6 months. She will return to the [facility] and visit her parents over the winter holiday and she will come to the office for a follow-up appointment with me. We discussed termination issues and discussed at her next appointment will likely be her last with me. We reviewed her treatment and how well she has coped over the years throughout college and grad school. She is responding very well to current medication. Pts sleep is intact. She is eating regular meals. No sign of harry or hypomania. No paranoia Past Psychiatric History: In 2018 when pt was a freshman at [employer], Pt and parents met with this commercial insurance underwriter- they report that 2 years dx with depression, DEIDRA, and past June 2018 dx with Schizoaffective Depressive type because she told her psychiatrist that she had paranoid ideas with ritualized behaviors since age 11. She would feel someone was watching her while getting undressed or changing her clothes and would meter installer and remover a certain place in her room; she took an antipsychotic for a while but didn't like it so stopped and the paranoid ideas went away as well; She is on Prozac and Wellbutrin and feels she is doing very well. Pt did not have the relational style nor social withdrawal that is characteristic of schizoaffective disorder; she had long standing anxiety with OCD traits and depression with transient paranoia. Pt has friends and makes social connection. She has been treated for depression and DEIDRA with panic and has done well; No IPLOC. no PHP IOP. no self harm. graduated from [employer] and has just completed her graduate studies in [employer]. This winter 2024 she and I discussed her diagnosis and agreed that she likely has Bipolar II disorder with cyclical seasonal patter with depression alternating with periods of high anxiety, irritability and periods of sleeplessnes Subjective Subjective Subjective Medication Compliance: Yes Side effects from medications: No Review of Systems Medical Review of Systems: unchanged Mental Status Exam Mental Status Exam Patient Appearance: Well Grooomed and Appropriate Patient Orientation: Person, Place, Time and Situation Level of Consciousness: Awake and Appropriate Patient Behavior: Appropriate, Cooperative and Good Eye Contact Mood Description: Happy and Cheerful Affect Description: Happy and Cheerful Patient Cognition Impaired: No Ability to Follow Directions: Good Speech Pattern: Clear and Appropriate Memory Description: Intact Hallucinations: None Delusions: Not Present Thought Process: Intact and Goal Oriented Thought Content: positive for Intact and positive for Goal Oriented Judgement: Good Assessment and Plan Assessment & Plan (1) Bipolar II disorder with most proximal episode hypomanic with seasonal pattern: Status: Acute Code(s): F31.81 - Bipolar II disorder Plan continue medications as is use risperdal for irritability and sleepless as needed (no refill needed) utilize clonazepam for any spikes in anxiety. (no refill needed) return for follow up in 6 months Medications: Refilled bupropion HCl XL (Wellbutrin XL) 150 mg PO QAM 90 tabs 1RF folic acid 1 mg PO DAILY 90 tabs 1RF amitriptyline 50 mg (2 x 25 mg) PO BEDTIME 180 tabs 1RF clonazepam 1 mg PO DAILY PRN 90 tabs 1RF anxiety lamotrigine (Lamictal) 200 mg (2 x 100 mg) PO BID 360 tabs 2RF Counseling and coordination of Care Pt. Self Management counseling: Maintenance-social rhythm, Mod caffeine/ETOH intake, Nutrition education and improvement, Sleep hygiene and General coping skills Medication management counseling: Effectiveness, Side effects, Dosing range, Duration, Drug interaction and Adherence Diagnosis and Prognosis Counseling: Accuracy of diagnosis, Prognosis over time, Impact of diagnosis on life functions, Impact of family relationship, Problematic behaviors secondary to diagnosis and Adequacy of current interventions Details: I spent 45 minutes reviewing the record, seeing the patient and documenting in the medical record. Counseling provided to the patient/caregiver as outlined below. Addressed patient/caregiver concerns regarding current medication regime including effective adherence. Addressed patient/caregiver concerns regarding diagnosis and prognosis including accuracy of diagnosis, prognosis over time, impact of diagnosis. Addressed patient/caregiver concerns regarding impact of recent stressors. [facility] Medical History (Updated 05/22/24 @ 17:11 by Nicole Jhaveri APRN) Major depressive disorder, recurrent, mild Social History: in grad school for [employer]; grew up with mom and dad in [place]; ppt is the youngest 4 ; all her sibs are 1/2 sibs and much older. Pt graduated from [employer] in 2022 Substance History: none Trauma History: none known Coding Level of Care Code Est Pt Level 4 (83991) Therapy 30m w/E&M (72285) Diagnoses Bipolar II disorder with most proximal episode hypomanic with seasonal pattern F31.81
--- OUTSIDE RECORDS SUMMARY | 2024-10-31 09:30 | XMS_ITS | Encounter Summary ---
Author Organization [facility] Address [address] [place] [address] Care Team Providers Care Social Sciences Lecturer Name Role Phone Moraima Zeng DO Primary Care Provider [phone] Moraima Zeng DO Unavailable [phone] Moraima Zeng DO Unavailable [phone] Shashi Shannon M DO Unavailable [phone] KarriMoraima arnold DO Unavailable [phone] [...] Unavailable [phone] Moraima Zeng DO Unavailable + Moraima Zeng DO Unavailable [phone] Nicole Caballero BHARATH Unavailable [phone] Nicole Caballero BHARATH Unavailable [phone] Reason for Referral * Specialty Diagnoses / Procedures Referred By Contac t Referred To Contact [address] [address] Phone: tel: Referral ID Status Reason Start Date Expiration Date Visits Re quested Visits Authorized Encounter Details Date Type Department Care Team (Late Contact Info) Description 10/25/2018 Outpatient Orders Only [facility] Primary Care - [address] [address] ProviderJessie MD [address] [place] [address] Social History Tobacco Use Types Packs/Day Years [...] as of this encounter Plan of Treatment Upcoming Encounters Date Type Department Care Team (Late st Contact Info) Description 11/06/2024 12:15 EDT Office Visit [facility] Obstetrics and Gynecology - [place] [address] [place] [phone] Janis Alonso, RODEO PERFORMER [address] [place] [address] follow up - BC documented as of this encounter Goals Goal [...] on filedocumented in this encounter Care Teams Social Sciences Lecturer Relationship Specialty Start Date End Date Moraima Zeng DO [address] [place] [address] PCP - General Internal Medicine - General 10/11/18 Moraima Zeng DO [address] [place] [address] ACO/LANEY Attributed Provider 04/19/19 10/17/19 Moraima Zeng, DO [address] [place] [address] ACO/LANEY Attributed Provider 10/18/19 11/17/19 Shannon Danielle, DO [address] [place] [address] Master Tax Advisor Obstetrics & Gynecology 11/22/19 Moraima Zeng, DO [address] [place] [address] HORSE BREEDER+ Provider 12/19/19 01/17/20 Kalli Marie, [address] [place] [address] HORSE BREEDER+ Provider 01/18/20 04/18/21 Moraima Zeng, DO [address] [place] [address] HORSE BREEDER+ Provider 04/19/21 04/19/21 Cammy Jiang MD [address] [place] [address] Dermatology 09/28/22 Moraima Zeng DO [address] [place] [address] [facility] PC Panel 12/18/22 10/17/23 Moraima Zeng, DO [address] [place] [address] ACO/LANEY Attributed Provider 02/17/23 04/18/23 Moraima Zeng, DO [address] [place] [address] ACO/LANEY Attributed Provider 05/20/23 06/17/23 Moraima Zeng, DO [address] [place] [address] ACO/LANEY Attributed Provider 07/19/23 09/17/23 Nicole Caballero APN [address] [place] [address] ACO/LANEY Attributed Provider 09/18/23 11/17/23 Nicole Caballero APN [address] [place] [address] [facility] PC Panel 09/18/23 11/17/23 Moraima Zeng, DO [address] [place] [address] [facility] PC Panel 10/18/23 09/16/24 Moraima Zeng, DO [address] [place] [address] ACO/LANEY Attributed Provider 10/18/23 02/17/24 Moraima Zeng, DO [address] [place] [address] ACO/LANEY Attributed Provider 02/18/24 06/16/24 Moraima Zeng DO [address] [place] [address] ACO/LANEY Attributed Provider 07/18/24 09/16/24 Nicole Caballero APN [address] [place] [address] [facility] PC Panel 08/17/24 Nicole Caballero APN [address] [place] [address]671 ACO/LANEY Attributed Provider 08/17/24 documented as of this encounter
--- OUTSIDE RECORDS SUMMARY | 2024-10-31 09:30 | XMS_ITS | Patient Health Record ---
Author Organization [facility] Address [address] [address] Care Team Providers Care Fire Tender Name Role Phone JennicesarRylie roth Primary Care Provider Un available Allergies Allergen (clinical drug ingredient) Drug/Non Drug Allergy documented on EMR Reaction Allergy Type Onset Date Status topiramate Topiramate 30 pound weight loss and spaciness Drug Allergy Active Reason For Referral No Information Medications Medication SIG (Take, Route, Frequency, Duration) Notes Start Date End Date Status buPROPion HCl ER (XL) 300 MG TAKE 1 TABLET EVERY MORNING. Oral for 30 Active Deplin 15 MG 1 tablet Orally Once a day *Reorder from [employer]ana for eRx and Interaction Alerts* Active FLUoxetine HCl 20 MG TAKE 3 CAPSULES BY MOUTH DAILY Oral for 30 Active Rexulti 1 MG TAKE 1 TABLET BY MOUTH EVERYDAY AT BEDTIME Oral for 30 Active Petadolex 7.5 MG as directed Orally 09/21/2017 Active Magnesium Citrate 200 MG as directed Orally BID 09/21/2017 Active Problems Problem Type SNOMED Code ICD Code Onset Dates Problem Status W/U Status Risk Notes Problem Refractory migraine with aura (994169072) Migraine with aura, intractable, without status migrainosus (G43.119) Active confirmed Problem Chronic migraine without aura, intractable, without status migrainosus (G43.719) Active confirmed This is a young woman with cooccurrence of major depressive disorder with anxiety along with migraine. Perhaps being a teenager, postpubertal state mental changes and excessive stress during school made of triggered both. She has done exceedingly well with a combination Petadolex and magnesium citrate. Problem Episodic tension-type headache (653221060) Episodic tension-type headache, intractable (G44.211) Active confirmed She has some significant spasm in the neck and has poor ergonomics when she studies. This certainly can be addressed. She is seeing a chiropractor and can do some home exercises as well to improve her posture. Plan Of Treatment No Information Insurance Providers Payer Name Payer Address Payer Phone Subscriber Number Group Number Insured Name Patient Relationship to Insured Coverage Start Date Coverage End Date [facility] [address] [place] [address] [id number] SUE FITZGERALD Self - patient is the insured Medical (General) History Medical History History ICD Code migraine headaches depression: anxiety and recently relassi fied as schizoaffective disorder chronic GI symptoms with nausea
--- OUTSIDE RECORDS SUMMARY | 2024-10-31 09:30 | XMS_ITS | Clinical Summary ---
Author [facility] Address [address] [place] [address] Phone Care Team Providers Care Test Borer Name Role Phone Unavailable Primary Care Provider Unavailabl e Social History Tobacco Use Types Packs/Day Years Used Date Smoking Tobacco: Never Assessed Comments Unknown Sex and Gender Information Value Date Recorded Sex Assigned at Not on file Legal Sex Female 2:46 PM EST Gender Identity Not on file Sexual Orientation Not on file Last Filed Vital Signs Vital Sign Reading Time Taken Comments Blood Pressure - - Pulse - - Temperature - - Respiratory Rate - - Oxygen Saturation - - Inhaled Oxygen Concentration - - Weight 78 kg (171 lb 15.3 oz) 12/02/2016 9:13 AM EDT Height 174.5 cm (5' 8.7 ) 12/02/2016 9:13 AM EDT Body Mass Index 25.62 12/02/2016 9:13 AM EDT Plan of Treatment Not on file
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
--- OUTSIDE RECORDS SUMMARY | 2024-10-31 09:30 | XMS_ITS | Patient Health Record ---
Author Organization [facility] Address [address] [place] [id number] Support Name Relationship Address Phone Sandhu Priscilla Guarantor Unknown [phone] Reason For Referral No Information Problems Problem Type SNOMED Code ICD Code Onset Dates Problem Status W/U Status Risk Notes Problem Allergic rhinitis caused by pollen (disorder) (45653757) Allergic rhinitis due to pollen (477.0) 12/04/19 09 Active confirmed Problem Acute atopic conjunctivitis (47797301) Acute atopic conjunctivitis (372.05) 11/13/19 09 Active confirmed Problem Allergic asthma without status asthmaticus (disorder) (58581038) Extrinsic asthma, unspecified (493.00) 12/04/19 09 Active confirmed Plan Of Treatment No Information Insurance Providers Payer Name Payer Address Payer Phone Subscriber Number Group Number Insured Name Patient Relationship to Insured Coverage Start Date Coverage End Date [employer] [address] [place], [place] [id number] Ollie Sandhu Child - Insured has Financial Responsibility 8
== END 2024-10-31 09:38 | disposition home or self-care (01) ==
LOC: HO.HOP 09:08
PROVIDERS: Visit Provider Clinical Nurse Specialist Psychiatric/Mental Health
DX: F31.81 Bipolar II disorder (principal)
CPT/HCPCS: 90833; 99214

== ENCOUNTER 2025-04-16 09:55 | Outpatient (AMB) | payer BC, SELFPAY ==
--- NOTE | 2025-04-16 10:21 | MHC.OFFVISPS ---
Intake Intake Visit Reasons: depression Policy Manager Required: No Allergies olanzapine Allergy (Intermediate, Verified 09/16/23 11:08) Rash lorazepam Adverse Reaction (Mild, Verified 09/16/23 11:08) Agitated Medication List - Last Reconciled 04/16/25 by Nicole Jhaveri APRN amitriptyline 50 mg (2 x 25 mg) PO BEDTIME bupropion HCl XL (Wellbutrin XL) 150 mg PO QAM cholecalciferol (vitamin D3) (Vitamin D3) 25 mcg PO DAILY clonazepam 1 mg PO DAILY PRN drospirenone-ethinyl estradiol 3-0.02 mg (Vestura (28)) tabs PO DAILY folic acid 1 mg PO DAILY lamotrigine 150 mg (1.5 x 100 mg) PO BID risperidone (Risperdal) 0.5 mg PO BID tretinoin 0.05% appl topical HPI- Psychiatric Chief Complaint: depression HPI Narrative: Priscilla is here for follow-up of for mood symptoms, anxiety and insomnia. Priscilla continue to do very well; She is adjusting to living in [facility]. She is struggling with the short days and lack of sunlight recently; She has good supports; She is home visisting family for the next two week;s; she has been compliant iw meds; No known side effects; She does report feeling very tired frequently. We discussed her having blood work done. She is also looking for a psychiatrist in [facility] to transfer ot as she will be staying there working for a longer period of time rather than when in grad school she was moving every several months. Her PHQ9= 5 and Her GAD7= 1. No evidence of a rash she reports no side effects. She has secured a job in her field that she feels good about she has good community she spends time with friends and socializes she feels well supported. She has not had to use the clonazepam nor the Risperdal frequently she has used Risperdal 1 time when she could not sleep and she has used the clonazepam a few times over the past few months. she denies any thoughts of harming herself We discussed termination issues and discussed at her next appointment will likely be her last with me. We reviewed her treatment and how well she has coped over the years throughout college and grad school. She is responding very well to current medication. Pts sleep is intact. She is eating regular meals. No sign of harry or hypomania. No paranoia Past Psychiatric History: In 2019 when pt was a freshman at [employer], Pt and parents met with this marketing underwriter- they report that 2 years dx with depression, DEIDRA, and past June 2018 dx with Schizoaffective Depressive type because she told her psychiatrist that she had paranoid ideas with ritualized behaviors since age 11. She would feel someone was watching her while getting undressed or changing her clothes and would joint machine operator a certain place in her room; she took an antipsychotic for a while but didn't like it so stopped and the paranoid ideas went away as well; She is on Prozac and Wellbutrin and feels she is doing very well. Pt did not have the relational style nor social withdrawal that is characteristic of schizoaffective disorder; she had long standing anxiety with OCD traits and depression with transient paranoia. Pt has friends and makes social connection. She has been treated for depression and DEIDRA with panic and has done well; No IPLOC. no PHP IOP. no self harm. graduated from [employer] and has just completed her graduate studies in [employer]. This winter 2024 she and I discussed her diagnosis and agreed that she likely has Bipolar II disorder with cyclical seasonal patter with depression alternating with periods of high anxiety, irritability and periods of sleeplessnes Subjective Subjective Medication Compliance: Yes Side effects from medications: No Review of Systems Medical Review of Systems: unchanged Mental Status Exam Mental Status Exam Patient Appearance: Well Grooomed and Appropriate Patient Orientation: Person, Place, Time and Situation Level of Consciousness: Awake and Appropriate Patient Behavior: Appropriate, Cooperative and Good Eye Contact Mood Description: Happy and Cheerful Affect Description: Happy and Cheerful Patient Cognition Impaired: No Ability to Follow Directions: Good Speech Pattern: Clear and Appropriate Memory Description: Intact Hallucinations: None Delusions: Not Present Thought Process: Intact and Goal Oriented Thought Content: positive for Intact and positive for Goal Oriented Judgement: Good Assessment and Plan Assessment & Plan (1) Bipolar II disorder with most proximal episode hypomanic with seasonal pattern: Status: Acute Code(s): F31.81 - Bipolar II disorder Plan continue medications as is use risperdal for irritability and sleepless as needed (no refill needed) utilize clonazepam for any spikes in anxiety. (no refill needed) treatment summary written for patient to transfer care to new psychatrist. Medications: Changed From lamotrigine 150 mg (1.5 x 100 mg) PO BID 270 tabs 1RF To lamotrigine 100 mg PO DAILY 90 tabs 1RF Refilled folic acid 1 mg PO DAILY 90 tabs 1RF amitriptyline 50 mg (2 x 25 mg) PO BEDTIME 180 tabs 1RF clonazepam 1 mg PO DAILY PRN 90 tabs 1RF anxiety risperidone (Risperdal) 0.5 mg PO BID 60 tabs 1RF Orders: Orders Complete Blood Count Auto Diff Today R53.83 - Other fatigue, Z91.89 - Other specified personal risk factors, not elsewhere classified Comprehensive Randolph. Panel Fast Today R53.83 - Other fatigue, Z91.89 - Other specified personal risk factors, not elsewhere classified TSH reflex Free T4 Today R53.83 - Other fatigue Vitamin B12 and Folate Today R53.83 - Other fatigue, Z91.89 - Other specified personal risk factors, not elsewhere classified Magnesium Today R53.83 - Other fatigue Lamotrigine Lamictal Today F31.81 - Bipolar II disorder, R53.83 - Other fatigue, Z91.89 - Other specified personal risk factors, not elsewhere classified Vitamin D 25-OH (D2 and D3) Today E55.9 - Vitamin D deficiency, unspecified, R53.83 - Other fatigue Lipid Panel Today R53.83 - Other fatigue, Z91.89 - Other specified personal risk factors, not elsewhere classified Counseling and coordination of Care Pt. Self Management counseling: Maintenance-social rhythm, Mod caffeine/ETOH intake, Nutrition education and improvement, Sleep hygiene and General coping skills Medication management counseling: Effectiveness, Side effects, Dosing range, Duration, Drug interaction and Adherence Diagnosis and Prognosis Counseling: Accuracy of diagnosis, Prognosis over time, Impact of diagnosis on life functions, Impact of family relationship, Problematic behaviors secondary to diagnosis and Adequacy of current interventions Details: I spent 30 minutes reviewing the record, seeing the patient and documenting in the medical record. Counseling provided to the patient/caregiver as outlined below. Addressed patient/caregiver concerns regarding current medication regime including effective adherence. Addressed patient/caregiver concerns regarding diagnosis and prognosis including accuracy of diagnosis, prognosis over time, impact of diagnosis. Addressed patient/caregiver concerns regarding impact of recent stressors. [facility] Medical History (Updated 04/16/25 @ 10:28 by Nicole Jhaveri APRN) Major depressive disorder, recurrent, mild Social History: in grad school for [employer]; grew up with mom and dad in [place]; ppt is the youngest 4 ; all her sibs are 1/2 sibs and much older. Pt graduated from [employer] in 2022 Substance History: none Trauma History: none known Coding Level of Care Code Est Pt Level 4 (06438) Diagnoses Bipolar II disorder with most proximal episode hypomanic with seasonal pattern F31.81
--- OUTSIDE RECORDS SUMMARY | 2025-04-16 10:41 | XMS_ITS | Encounter Summary ---
Author Organization [facility] Address [address] [place] [address] Care Team Providers Care Business Line Controller Name Role Phone Moraima Zeng DO Primary Care Provider [phone] Moraima Zeng DO Unavailable [phone] Moraima Zeng DO Unavailable [phone] Shashi Shannon M DO Unavailable [phone] KarriMoraima arnold DO Unavailable [phone] Moraima Zeng DO Unavailable [phone] Moraima Zeng DO Unavailable [phone] Nicole Caballero BHARATH Unavailable [phone] Nicole Caballero BHARATH Unavailable [phone] Moraima Zeng DO Unavailable + [phone] Moraima Zeng DO Unavailable + [phone] Reason for Referral * Specialty Diagnoses / Procedures Referred By Contac t Referred To Contact [address] [address] Phone: tel: Referral ID Status Reason Start Date Expiration Date Visits Re quested Visits Authorized Encounter Details Date Type Department Care Team (Late st Contact Info) Description 10/25/2018 Outpatient Orders Only [facility] Primary Care - [address] [address] ProviderJessie MD [address] [place] [id number] Social History Tobacco Use Types Packs/Day [...] on filedocumented in this encounter Care Teams Business Line Controller Relationship Specialty Start Date End Date Moraima Zeng DO [address] [place] [address] PCP - General Internal Medicine - General 10/11/18 Moraima Zeng DO [address] [place] [address] ACO/LANEY Attributed Provider 04/19/19 10/17/19 Moraima Zeng DO [address] [place] [address] ACO/LANEY Attributed Provider 10/18/19 11/17/19 Shannon Danielle DO [facility] [place] [address] [facility] 11/22/19 Moraima Zeng, DO [address] [place] [address] GUYLINE OPERATOR+ Provider 12/19/19 01/17/20 Kalli Marie DO [address] [place] [address] GUYLINE OPERATOR+ Provider 01/18/20 04/18/21 Moraima Zeng, DO [address] [place] [address] GUYLINE OPERATOR+ Provider 04/19/21 04/19/21 Cammy Jiang MD [address] [place] [address] Dermatology 09/28/22 Moraima Zeng, [address] [place] [address] [facility] PC Panel 12/18/22 10/17/23 Moraima Zeng DO [address] [place] [address] ACO/LANEY Attributed Provider 02/17/23 04/18/23 Moraima Zeng DO [address] [place] [address] ACO/LANEY Attributed Provider 05/20/23 06/17/23 Moraima Zeng, DO [address] [place] [address] ACO/LANEY Attributed Provider 07/19/23 09/17/23 Nicole Caballero APN [address] [place] [address] ACO/LANEY Attributed Provider 09/18/23 11/17/23 Nicole Caballero APN [address] [place] [address] [facility] MG PC Panel 09/18/23 11/17/23 Moraima Zeng, DO [address] [place] [address] [facility] MG PC Panel 10/18/23 09/16/24 Moraima Zeng, DO [address] [place] [address] ACO/LANEY Attributed Provider 10/18/23 02/17/24 Moraima Zeng, DO [address] [place] [address] ACO/LANEY Attributed Provider 02/18/24 06/16/24 Moraima Zeng, DO [address] [place] [address] ACO/LANEY Attributed Provider 07/18/24 09/16/24 Nicole Caballero APN [address] [place] [address] [facility] MG PC Panel 08/17/24 11/16/24 Nicole Caballero APN [address] [place] [address] ACO/LANEY Attributed Provider 08/17/24 11/16/24 Moraima Zeng DO [address] [place] [address] ACO/LANEY Attributed Provider 10/17/24 01/16/25 Moraima Zeng DO [address] [place] [address] [facility] MG PC Panel 10/17/24 01/16/25 documented as of this encounter
--- OUTSIDE RECORDS SUMMARY | 2025-04-16 10:42 | XMS_ITS | Clinical Summary ---
Author Organization [facility] Address [address] [place] [address] Phone Care Team Providers Care Rv Technician Name Role Phone Unavailable Primary Care Provider [...]
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
--- OUTSIDE RECORDS SUMMARY | 2025-04-16 10:42 | XMS_ITS | Encounter Summary ---
Author Organization [facility] Address [address] [place] [address] Care Team Providers Care Janitor And Cleaner Name Role Phone KarriMoraima Adelita VIDAL Primary Care Provider Shannon Danielle DO Unavailable Cammy Jiang MD Unavailable [phone] Karri, Moraima Ureña DO Unavailable [phone] Karri Moraima Ureña DO Unavailable [phone] Karri Moraima Ureña DO Unavailable [phone] KarriMoraima DO Unavailable [phone] Nicole Caballero TAIL WORKER Unavailable [phone] Nannette Caballeroricia TAIL WORKER Unavailable [phone] Karri Moraima Ureña DO Unavailable [phone] Karri Moraima Ureña DO Unavailable [phone] Tracey Zengnifer Adelita DO Unavailable [phone] Karri Moraima Ureña DO Unavailable [phone] Nicole Caballero TAIL WORKER Unavailable [phone] Nannette Caballeroricia TAIL WORKER Unavailable [phone] Karri Moraima Ureña DO Unavailable Moraima Zeng DO Unavailable Encounter Details Date Type Department Care Team (Late st Contact Info) Description 12/10/2022 Telephone [facility] - Primary Care - [place] [address] [place] [phone] Tracey Zengnifer Adelita, DO [address] [phone] Social History Tobacco Use Types Packs/Day Years [...] discuss bw. * Telephone Encounter - Michael Killian Sj - 12/10/2022 0859 EDT Pt called, Got [...] on filedocumented in this encounter Care Teams Janitor And Cleaner Relationship Specialty Start Date End Date Moraima Zeng DO [address] [place] [address] PCP - General Internal Medicine - General 10/11/18 Shannon Danielle DO [address] [place] [address] [address] [place] [address] Solderer Assembler Obstetrics & Gynecology 11/22/19 Cammy Jiang MD [address] [place] [address] Dermatology 09/28/22 Moraima Zeng, DO [address] [place] [address] [facility] MG PC Panel 12/18/22 10/17/23 Moraima Zeng, DO [address] [place] [address] ACO/LANEY Attributed Provider 02/17/23 04/18/23 Moraima Zeng, DO [address] [place] [address] ACO/LANEY Attributed Provider 05/20/23 06/17/23 Moraima Zeng, DO [address] [place] [address]5065 ACO/LANEY Attributed Provider 07/19/23 09/17/23 Nicole Caballero APN [address] [place] [address]3924 ACO/LANEY Attributed Provider 09/18/23 11/17/23 Nicole Caballero APN [address] [place] [address] [facility] MG PC Panel 09/18/23 11/17/23 Moraima Zeng, DO [address] [place] [address] [facility] MG PC Panel 10/18/23 09/16/24 Moraima Zeng, DO [address] [place] [address] 47473 ACO/LANEY Attributed Provider 10/18/23 02/17/24 Moraima Zeng, DO [address] [place] [address] 22514 ACO/LANEY Attributed Provider 02/18/24 06/16/24 Moraima Zeng, DO [address] [place] [address]6314 ACO/LANEY Attributed Provider 07/18/24 09/16/24 Nicole Caballero APN [address] [place] [address] [facility] MG PC Panel 08/17/24 11/16/24 Nicole Caballero APN [address] [place] [address]46 ACO/LANEY Attributed Provider 08/17/24 11/16/24 Moraima Zeng, DO [address] [place] [address] 69578 ACO/LANEY Attributed Provider 10/17/24 01/16/25 Moraima Zeng, DO [address] [place] [address] [facility] MG PC Panel 10/17/24 01/16/25 documented as of this encounter
--- OUTSIDE RECORDS SUMMARY | 2025-04-16 10:42 | XMS_ITS | Clinical Summary ---
Author Organization [facility] Address [address] [place] [address] Care Team Providers Care Case Filler Name Role Phone Moraima Zeng DO Primary Care Provider Shannon Danielle DO Unavailable [phone] Cammy Vega MD Unavailable [phone] Allergies Active Allergy Reactions Criticality Noted Date Comments Olanzapine 05/06/2020 Rash Brexpiprazole Drowsiness Low 04/09/2021 Extreme fatigue Topiramate 10/11/2018 Heavy fog Medications Magnesium 125 MG CAPS by mouth Active Multiple Vitamins-Calcium (ONE-A-DAY WOMENS PO) by mouth Active amitriptyline (ELAVIL) 25 MG tablet Take 25 mg by mouth nightly 03/22/20 21 Active Cholecalciferol (VITAMIN D) 25 [...] 150 mg every morning by mouth 08/05/19 23 Active folic acid (FOLVITE) 1 MG tablet Take 1 Tablet daily by mouth 09/04/19 23 Active tretinoin (RETIN-A) 0.05 % cream 12/09/19 23 Active lamoTRIgine (LAMICTAL ODT) 50 MG disintegrating tablet Take 50 mg by mouth daily Active drospirenone-ethin yl estradiol (MELLISSA) 3-0.02 MG per tabletIndications: Contraceptive Management Take one Tablet by mouth daily Indications: Contraceptive Management 90 Tablet 3 11/07/19 25 Active Active Problems Problem Noted Date Diagnosed Date Surveillance for control, oral contracepti ves 11/06/2024 Assessment & Plan (11/06/2024 12:47 EDT): Happy on ocps, aches reviewed. Rx refilled bp 110/80 Encounter for gynecological examination without abnormal finding 04/10/2024 Assessment & Plan (04/10/2024 13:36 EST): Normal MEDICAID ELIGIBILITY SPECIALIST exam PAP test Not indicated at this [...] UTD w/ yearly - [facility] Dental Exam: UTD w/ cleaning Flu Vaccine: [...] UTD w/ yearly - [facility] Dental Exam: UTD w/ cleaning Flu Vaccine: [...] (12/02/2022 18:03 EDT): Sinus tachycardia w/ anxiety Worse on the [...] otherwise stable baseline EKG Recurrent major depressive disorder, in full rem ission 04/09/2021 Assessment & Plan (12/02/2022 14:10 EDT): [...] well. Hydroxyzine 25 mg prn - stopped Medications: elvail 25 mg nightly Klonopin 0.5 mg - 1 mg daily as needed wellbutrin xl 150 mg daily lamictal 100 mg in the AM and 50 mg nightly All psych medications through psychiatrist Jeet Jones in [facility] PHQ-9 = 0 on 12/02/2022, stable, [...] All psych medications through psychiatrangela Jones in [facility] Polyarthralgia 05/06/2020 Assessment & Plan (12/02/2022 13:53 EDT): Secondary to joints hypermobility syndrome. No signs of inflammatory polyarthritis. Labs November 2019: negative for RF, CCP, CLAUDIA, King, SPECIMEN PREPARATION ASSISTANT, dsDNA, SSA, Scl 70, Lyme western blot. Normal CPK, TSH. Negative celiac panel. Repeatedly normal ESR and CRP. S/p work up w/ rheumatology at [facility]. Assessment & Plan (09/12/2021 13:19 EDT): Secondary to joints hypermobility syndrome. No signs of inflammatory polyarthritis. Labs November 2019: negative for RF, CCP, CLAUDIA, King, SPECIMEN PREPARATION ASSISTANT, dsDNA, SSA, Scl 70, Lyme western blot. Normal CPK, TSH. Negative celiac panel. Repeatedly normal ESR and CRP. Recommend: - Tylenol 500 mg BID PRN - avoid activities that includes joints hyperextension (like modern dance) - do muscle strengthening exercises Assessment & Plan (04/09/2021 8:40 EST): Full [...] was negative for RF, CCP, CLAUDIA, King, SPECIMEN PREPARATION ASSISTANT, dsDNA, SSA, Scl 70, Lyme western blot. Normal CPK, TSH. Negative celiac panel. Repeatedly normal ESR and CRP. Likely non specific polyarthralgia. Will continue to reevaluate Recommend: - Tylenol 500 mg BID PRN [...] was negative for RF, CCP, CLAUDIA, King, SPECIMEN PREPARATION ASSISTANT, dsDNA, SSA, Scl 70, Lyme western blot. [...] well. Hydroxyzine 25 mg prn - stopped Medications: elvail 25 mg nightly Klonopin 0.5 mg - 1 mg daily as needed wellbutrin xl 150 mg daily lamictal 100 mg in the AM and 50 mg nightly All psych medications through psychiatrist Jeet Jones in [facility] PHQ-9 = 0 on 12/02/2022, stable, [...] All psych medications through psychiatrangela Jones in [facility] Assessment & Plan (06/07/2020 16:30 EST): [...] well. Hydroxyzine 25 mg prn - stopped Medications: elvail 25 mg nightly Klonopin 0.5 mg - 1 mg daily as needed wellbutrin xl 150 mg daily lamictal 100 mg in the AM and 50 mg nightly All psych medications through psychiatrist - Nannette singh [facility] PHQ-9 = 0 on 12/02/2022, stable, [...] medications through psychiatrist - Nannette Jones in [facility] Assessment & Plan (11/22/2019 14:25 EDT): [...] Gluten intolerance f/u with gastro Schizoaffective disorder 10/11/201808/2019 Overview (10/11/2018): Diagnosed with psychiatrist 3 months [...] etc Recommend hep B immune titers etc Immunizations Immunization Administration Dates Next Due DTaP 12/25/2004, 2,03/29/2001,01/25,2000 [...] Relation Name Comments High Blood Pressure Father 1 Thyroid Disease Father 2 Ollie Sandhu Pancreatic cancer Maternal Grandfather Breast Cancer Mother 1 Skin cancer Mother 1 Stroke Paternal Grandfather 1 Colon Cancer Neg Hx Ovarian Cancer Neg Hx Uterine Cancer Neg Hx Relation Name Status Comments Father 1 Father 2 Ollie Sandhu Alive Maternal Grandfather Mother 1 Mother 2 Cassidy Martin Alive Paternal Grandfather 1 Paternal Grandfather 2 Michael Sandhu Social History Tobacco Use Types Packs/Day Years Used Date Smoking Tobacco: Never Smokeless Tobacco: Never Tobacco Cessation:Counseling Given: Not Answered Alcohol Use Standard Drinks/Week Comments Yes 2 (1 standard drink = 0.6 oz pur [...] EDT Sexual Orientation Unknown/Unavailable 3 8:43 EDT Last Filed Vital Signs Vital Sign Reading Time Taken Comments Blood Pressure 110/80 11/06/2024 1212 EDT Pulse 91 12/10/2022 1404 EDT Temperature 36.7 C (98.1 F) 12/10/2022 1404 EDT Respiratory Rate 20 12/10/2022 1404 EDT Oxygen Saturation 98% 12/10/2022 1404 EDT Inhaled Oxygen Concentration - - Weight 90.7 kg (200 lb) 11/06/2024 1212 EDT Height 175.3 cm (5' 9 ) 11/06/2024 1212 EDT Body Mass Index 29.53 11/06/2024 1212 EDT Plan of Treatment Health Maintenance Due Date Last Done Comments Yearly Depression Screen 06/07/2021 021, 12/21/2019, 11/22/2019, Additional history exists PAPSMEAR 2021 Wellness Exam 12/03/2023 12/02/2022 COVID-19 (SARS-CoV-2) Vaccine ( season) 2024 04/13/2022, 04/03/2021, 05/29/2020, Additional history exists FLU VACCINE (#1) 12/18/2024 04/13/2022, 04/09/2021 TETANUS / TDAP SHOT 06/21/2030 06/21/2020, 12/01/2011, 12/25/2004, Additional history exists Pneumococcal Immunization 0-49 Aged Out 01/25/2001, 2000 No longer eligibl e based on patient's age to complete this topic Meningococcal Vaccine Completed 12/07/2016, 012 [facility] Chlamydia Screening Discontinued 12/05/19 23, 06/28/2021, [...] [facility] - 12/09/2022 16:06 EDT Performed at: 01 - [facility] [id number] [facility] General Counsel: Theresa Bustos MD, Phone: [phone] Moraima Zeng DO VIROLOGY - IMMUNOLOGY Final Result [facility] from Last 3 Months or Most Recently Relevant to Health Maintenance Insurance Care Teams Case Filler Relationship Specialty Start Date End Date Moraima Zeng DO [facility] [address] PCP - General Internal Medicine - General 10/11/18 Shannon Danielle DO [facility] [place] [address] Private Security Guard Obstetrics & Gynecology 11/22/19 Cammy Vega MD [address] [place] [id number] Dermatology 09/28/22
--- OUTSIDE RECORDS SUMMARY | 2025-04-16 10:42 | XMS_ITS | Clinical Summary ---
Author Organization [facility] Address [address] [place], [place] [id number] Phone Care Team Providers Care Leguillon Debeader Name Role Phone Pcp, Not Required Primary Care Provider Unavaila ble Social History Tobacco Use Types Packs/Day Years Used Date Smoking Tobacco: Never Assessed Comments Unknown Sex and Gender Information Value Date Recorded Sex Assigned at Not on file Legal Sex Female 1:58 PM EDT Gender Identity Not on file Sexual Orientation Not on file Plan of Treatment Not on file Medical Devices Not on file [place] [address] [place] [address] PPO BLUE CROSS OUT OF STATE PPO BLUE CROSS OUT OF STATE PPO BLUE CROSS OUT OF STATE PPO Docurated OUT OF STATE PPO Docurated OUT [facility] PPO BLUE CROSS OUT OF STATE PPO BLUE CROSS OUT OF STATE PPO BLUE CROSS OUT OF STATE PPO Care Teams Leguillon Debeader Relationship Specialty Start Date End Date Pcp, Not Required PCP - General 08/09/18 Additional Source Comments The information contained in this document represents components of the legal health record. It is not the complete legal health record.[facility]
--- OUTSIDE RECORDS SUMMARY | 2025-04-16 10:42 | XMS_ITS | Patient Health Record ---
Author Organization [facility] Address [address] [place] [id number] Support Name Relationship Address Phone Sandhu Priscilla Guarantor Unknown [phone] Reason For Referral No Information Problems Problem Type SNOMED Code ICD Code Onset Dates Problem Status W/U Status Risk Notes Problem Allergic rhinitis caused by pollen (disorder) (22731448) Allergic rhinitis due to pollen (477.0) 12/04/19 09 Active confirmed Problem Acute atopic conjunctivitis (47651522) Acute atopic conjunctivitis (372.05) 11/13/19 09 Active confirmed Problem Allergic asthma without status asthmaticus (disorder) (47290943) Extrinsic asthma, unspecified (493.00) 12/04/19 09 Active confirmed Plan Of Treatment No Information Insurance Providers Payer Name Payer Address Payer Phone Subscriber Number Group Number Insured Name Patient Relationship to Insured Coverage Start Date Coverage End Date [employer] [address] [place], [place] [id number] Ollie Sandhu Child - Insured has Financial Responsibility 8
--- OUTSIDE RECORDS SUMMARY | 2025-04-16 10:42 | XMS_ITS | Patient Health Record ---
Author Organization [facility] Address [address] [address] Care Team Providers Care Fulfillment Representative Name Role Phone JennicesarRylie roth Primary Care [...] 300 MG TAKE 1 TABLET EVERY MORNING. Oral; Duration: 30 Active Deplin 15 MG 1 tablet Orally Once a day *Reorder from [employer] for eRx and Interaction Alerts* Active FLUoxetine HCl 20 MG TAKE 3 CAPSULES BY MOUTH DAILY Oral; Duration: 30 Active Rexulti 1 MG TAKE 1 TABLET BY MOUTH EVERYDAY AT BEDTIME Oral; Duration: 30 Active Petadolex 7.5 MG as directed Orally 09/21/2017 Active Magnesium Citrate 200 MG as directed Orally BID 09/21/2017 Active Problems Problem Type SNOMED Code ICD Code Onset Dates Problem Status W/U Status Risk Notes Problem Refractory migraine with aura (317109041) Migraine with aura, intractable, without status migrainosus (G43.119) Active confirmed Problem Chronic intractable migraine without aura (1119693386308 05) Chronic migraine without aura, intractable, without status migrainosus (G43.719) Active confirmed This is a young woman with cooccurrence of major depressive disorder with anxiety along with migraine. Perhaps being a teenager, postpubertal state mental changes and excessive stress during school made of triggered both. She has done exceedingly well with a combination Petadolex and magnesium citrate. Problem Episodic tension-type headache (509353892) Episodic tension-type headache, intractable (G44.211) Active confirmed [...] Insured Coverage Start Date Coverage End Date [facility] [address] [place] [address] [id number] SUE FITZGERALD Self - patient is the insured Medical (General) History Medical History History ICD Code migraine headaches depression: anxiety and recently relassi fied as schizoaffective disorder chronic GI symptoms with nausea
== END 2025-04-16 10:41 | disposition home or self-care (01) ==
LOC: HO.HOP 09:55
PROVIDERS: Visit Provider Clinical Nurse Specialist Psychiatric/Mental Health
DX: F31.81 Bipolar II disorder (principal)
CPT/HCPCS: 99214